=== PATIENT | male | born 1950 | race Caucasian/White ===

== ENCOUNTER → 2021-12-30 | Outpatient (CLI) | payer OTHER ==
[~2021-12-30] MED LIST: ATOR10TA69 PO; ESOMEPRAZOLE PO; FERR325T29 PO; GLYB5TAB8 PO; LISINOPR PO; METF-446 PO; NAPR-1023 PO; REGADENOSON 0.4 MG/5 ML PF SYG IVP SCH
== END | disposition home or self-care (01) ==
LOC: SHCH 08:55
PROVIDERS: ATTEND Internal Medicine Cardiovascular Disease
DX: R07.9 Chest pain, unspecified (principal); R06.09 Other forms of dyspnea
CPT/HCPCS: 78452; 96374; 93017; J2785; A9500 ×2

== ENCOUNTER 2024-03-13 13:52 | Emergency (ER) | payer OTHER ==
[~2024-03-13] VITALS: Ht 182.9 cm; Wt 81.6 kg
[~2024-03-13 13:52] MED LIST changes: -REGADENOSON 0.4 MG/5 ML PF SYG IVP SCH
[2024-03-13 14:49] LABS: BASOPHILS # (AUTO) 0.06 K/uL (0.00-0.20); BASOPHILS % (AUTO) 0.7 % (0.0-5.0); EOSINOPHILS # (AUTO) 0.07 K/uL (0.00-0.70); EOSINOPHILS % (AUTO) 0.8 % (0.0-8.0); HEMATOCRIT 44.1 % (42-54); IMMATURE GRANULOCYTE ABSOLUTE 0.09 K/uL (0-1); LYMPHOCYTES # (AUTO) 1.6 K/uL (1.0-4.8); LYMPHOCYTES % (AUTO) 17.8 % (21.0-51.0); MEAN CORPUSCULAR HEMOGLOBIN 30.9 pg (27.0-33.0); MEAN CORPUSCULAR HGB CONC 35.1 g/dL (32.0-36.0); MEAN CORPUSCULAR VOLUME 87.8 fL (79-99); MONOCYTES # (AUTO) 0.5 K/uL (0.1-1.0); MONOCYTES % (AUTO) 5.7 % (3.0-13.0); NEUTROPHILS # (AUTO) 6.4 K/uL (1.8-7.7); PLATELET COUNT (AUTO) 282 K/uL (130-400); RED BLOOD CELL COUNT(AUTO) 5.02 MIL/uL (4.50-6.20); RED CELL DISTRIBUTION WIDTH 12.3 % (11.0-15.5); WHITE BLOOD COUNT (AUTO) 8.7 K/uL (4.8-10.8)
[2024-03-13 15:10] LABS: CREATININE 2.4 mg/dL (0.5-1.3); POTASSIUM 4.5 mmol/L (3.5-5.1)
[2024-03-13 15:31] LABS: ABG OXYGEN SATURATION 48.8 % (94.0-98.0); BASE EXCESS,VENOUS BLOOD GAS -2.3 (-2.0-3.0); HCO3,VENOUS BLOOD GAS 24.1 (22.0-29.0); PCO2,VENOUS BLOOD GAS 47 (38-54); PH,VENOUS BLOOD GAS 7.325 (7.320-7.430); PO2,VENOUS BLOOD GAS 28.5 mmHg (23.0-48.0); VENT MODE, BG RA (ROOM AIR)
[2024-03-13] MEDS: 0.9% NACL 500ML IV.SOLN 500 ML IV ONE (16:04)
[2024-03-13] MEDS: INSULIN humuLIN R 100 UNIT/ML 3ML IV ONE ×2 (16:06→18:23)
[2024-03-13 16:10] LABS: ALBUMIN 3.4 g/dL (3.5-5.0); BILIRUBIN,DIRECT 0.1 mg/dL (0.0-0.3); BILIRUBIN,TOTAL 0.6 mg/dL (0.2-1.0); TOTAL PROTEIN, SERUM 7.5 g/dL (6.0-8.3)
[2024-03-13 17:42] LABS: INR <= 0.93 (0.85-1.15); PROTHROMBIN TIME 9.7 SEC (9.6-11.6)
[2024-03-13 18:13] LABS: ADD UA MICROSCOPIC YES; APPEARANCE,URINE CLEAR (CLEAR); BILIRUBIN,URINE NEGATIVE (NEGATIVE); COLOR,URINE LIGHT-YELLOW (YELLOW); GLUCOSE, URINE (UA) >=1000 mg/dL (NEGATIVE); KETONES,URINE NEGATIVE (NEGATIVE); LEUKOCYTE ESTERASE ,URINE NEGATIVE Leu/uL (NEGATIVE); NITRATE,URINE NEGATIVE (NEGATIVE); OCCULT BLOOD,URINE NEGATIVE (NEGATIVE); PH,URINE 5.5 (5.0-8.0); PROTEIN,URINE 30 mg/dL (NEGATIVE); UROBILINOGEN,URINE 0.2 mg/dL (0.2-1.0)
[2024-03-13 18:14] LABS: BACTERIA,URINE RARE /HPF (None Seen); RBC,URINE 0-1 /HPF (0-1); SQUAMOUS EPITHELIAL CELL,UR RARE /HPF (0-2)
[2024-03-13 18:22] LABS: PARTIAL THROMBOPLASTIN TIME < 20.0 SEC (26.3-35.5)
[2024-03-13] MEDS: 0.9% NACL 500ML IV.SOLN 500 ML IV SCH (18:22)
[2024-03-13] MEDS: LAbetaLOL 20MG SYG IV ONE (22:45)
[2024-03-13 23:23] VITALS: BP 167/88; PULSE 70; RESP 18; TEMP 98.2; O2SAT 97
== END 2024-03-13 23:39 | disposition short-term general hospital (02) ==
LOC: EDH 13:52
DX: I69.820 Aphasia following other cerebrovascular disease (principal); E11.65 Type 2 diabetes mellitus with hyperglycemia; E86.0 Dehydration; N17.9 Acute kidney failure, unspecified; E87.1 Hypo-osmolality and hyponatremia; I10 Essential (primary) hypertension; Z79.84 Long term (current) use of oral hypoglycemic drugs; Z79.899 Other long term (current) drug therapy
CPT/HCPCS: 99285; 96374; 70450; 71045; 96375; 80076; 83735; 84484; 80048; 82803; 83880; 85025; 85610; 85730; 87086 ×2; 87186; 82948 ×2; 82010; 81001; 36415; 96376; 93005; 36600; J1815 ×2; J7040 ×2